=== PATIENT | male | born 1940 | race Caucasian/White ===

== ENCOUNTER 2018-06-01 09:28 | Emergency (ER) | payer OTHER ==
[~2018-06-01] VITALS: Ht 162.6 cm; Wt 76.2 kg
[~2018-06-01 09:28] MED LIST: ADULT ASPIRIN81 MG; AVAPRO75 MG; GLUCOPHAGE XR500 MG; GLUCOTROL5 MG/BOTTL; IBUPROFEN800 MG PO; JANUVIA25 MG; LANTUS SOLOSTAR3 ML; LIPITOR20 MG; ORPH100T PO; SEPTRA DS TABLE1 TAB PO; ULTRACET PO
[2018-06-01] MEDS ORDERED: PROSCAR5 MG (09:43)
[2018-06-01] MEDS ORDERED: RAPAFLO8 MG (09:43)
[2018-06-01] MEDS ORDERED: SYNTHROID50 MCG (09:44)
== END 2018-06-01 20:40 | disposition left against medical advice (07) ==
LOC: ER 09:28
DX: Z53.20 Procedure and treatment not carried out because of patient's decision for unspecified reasons (principal)

== ENCOUNTER → 2019-11-16 | Outpatient (CLI) | payer OTHER ==
[~2019-11-16] MED LIST changes: +PROSCAR5 MG; +RAPAFLO8 MG; +SYNTHROID50 MCG
== END | disposition home or self-care (01) ==
LOC: RAD 13:50
DX: M25.561 Pain in right knee (principal)

== ENCOUNTER 2021-06-20 13:14 | Outpatient (CLI) | payer OTHER | END 2021-06-20 13:27 | disposition home or self-care (01) | LOC: RAD 13:14 | PROVIDERS: ATTEND Internal Medicine | DX: M50.323 Other cervical disc degeneration at C6-C7 level (principal); M50.90 Cervical disc disorder, unspecified, unspecified cervical region ==